=== PATIENT | female | born 1975 | race American Indian/Alaskan Native ===

== ENCOUNTER 2020-06-25 00:29 | Emergency (ER) | payer SELFPAY ==
[2020-06-25] MEDS ORDERED: HYDROmorphone 1 MG/1 ML INJ IV ONE (00:56)
[2020-06-25] MEDS ORDERED: LACTATED RINGERS 1,000 ML IV ONE ×2 (00:56→02:11)
[2020-06-25] MEDS ORDERED: ONDANSETRON 4 MG/2 ML INJ IV ONE (00:57)
--- NOTE | 2020-06-25 00:58 | Emergency Department Report ---
ED General Adult HPI - General Chief complaint: Abdominal Pain Stated complaint: weakness PUI?: Yes Time Seen by Provider: 06/25/20 00:42 Source: patient, EMS ( EMS documentation not available at time of chart dictation ), RN notes reviewed Mode of arrival: Stretcher Limitations: No Limitations - History of Present Illness Initial comments: The patient was evaluated in the emergency department for symptoms described in the history of present illness. He/she was evaluated in the context of the global COVID-19 pandemic, which necessitated consideration that the patient might be at risk for infection with the virus that causes COVID-19. Institutional protocols and algorithms that pertain to the evaluation of patients at risk for COVID-19 are in a state of rapid change based on information released by regulatory bodies including the CDC and federal and state organizations. These policies and algorithms were followed during the patient's care in the emergency department. Please note that these policies, procedures and recommendations changed on a rapid basis. During the entire history and physical examination, I had on complete personal protective equipment. Chaperoned by nurse Alka Mancuso Patient is a 45-year-old female. She is not known to myself previously. She is visiting from [place]. She reports that she has a history of appendectomy, and seizures, and reports that she currently takes phenobarbital. Patient staying in a local comfort [place] and, and is brought to the hospital by EMS. Patient complains of diffuse abdominal cramping, "teeth chattering", nausea, malaise. No loss of taste or smell. No headache. No neck pain. No chest pain. No shortness of breath. Unsure if she is having diarrhea. No urinary symptoms. She states she is concerned that she might have a seizure, however, s he has not had a seizure. She reports a negative Covid test approximately 2 weeks ago. -: Gradual, hour(s) Location: abdomen Radiation: non-radiation Quality: aching Consistency: constant Improves with: none Worsens with: other (Palpation) - Related Data Previous Rx's Medication Instructions Recorded Last Taken Type Acetaminophen [Non-Aspirin Extra 500 mg PO Q6HR PRN #30 tablet 06/25/20 Unknown Rx Strength] Amlodipine Besylate [Norvasc] 5 mg PO QDAY #30 tablet 06/25/20 Unknown Rx Ondansetron [Zofran Odt] 4 mg PO Q8HR PRN #20 tab.rapdis 06/25/20 Unknown Rx Allergies Allergy/AdvReac Type Severity Reaction Status Date / Time Penicillins Allergy Unknown Verified 06/25/20 00:39 ED Review of Systems ROS: Stated complaint: POSSIBLE SEIZURE Other details as noted in HPI Constitutional: fever, malaise, weakness Eyes: denies: eye discharge ENT: congestion Respiratory: denies: cough Cardiovascular: denies: chest pain Gastrointestinal: abdominal pain, nausea. denies: vomiting Genitourinary: denies: dysuria Musculoskeletal: myalgia Neurological: weakness. denies: headache Psychiatric: anxiety ED Past Medical Hx - Past Medical History Previous Medical History?: Yes Hx Seizures: Yes - Surgical History Past Surgical History?: Yes Hx Appendectomy: Yes - Social History Smoking Status: Current Every Day Smoker Substance Use Type: None - Medications Home Medications: Home Medications Medication Instructions Recorded Confirmed Last Taken Type Acetaminophen [Non-Aspirin Extra 500 mg PO Q6HR PRN #30 tablet 06/25/20 Unknown Rx Strength] Amlodipine Besylate [Norvasc] 5 mg PO QDAY #30 tablet 06/25/20 Unknown Rx Ondansetron [Zofran Odt] 4 mg PO Q8HR PRN #20 tab.rapdis 06/25/20 Unknown Rx ED Physical Exam - General Limitations: No Limitations General appearance: alert, anxious, in distress, obese - Head Head exam: Present: atraumatic, normocephalic - Eye Eye exam: Present: normal appearance, EOMI. Absent: nystagmus - ENT ENT exam: Present: normal exam, normal orophraynx, mucous membranes moist, normal external ear exam - Neck Neck exam: Present: normal inspection, full ROM. Absent: tenderness, meningismus - Respiratory Respiratory exam: Present: normal lung sounds bilaterally. Absent: respiratory distress, wheezes, rales, rhonchi, stridor, decreased breath sounds - Cardiovascular Cardiovascular Exam: Present: regular rate, normal rhythm, normal heart sounds. Absent: bradycardia, tachycardia, irregular rhythm, systolic murmur, diastolic murmur, rubs, gallop - GI/Abdominal GI/Abdominal exam: Present: soft, tenderness, other (Mild diffuse abdominal tenderness). Absent: distended, guarding, rebound, rigid, pulsatile mass - Extremities Exam Extremities exam: Present: normal inspection, full ROM, other (2+ pulses noted in the bilateral upper and lower extremities. There is no palpable cord. negative Homans sign. Muscular compartments are soft. The pelvis is stable.). Absent: pedal edema, calf tenderness - Back Exam Back exam: Present: normal inspection, full ROM. Absent: tenderness, CVA tenderness (R), CVA tenderness (L), paraspinal tenderness, vertebral tenderness - Neurological Exam Neurological exam: Present: alert, other (No facial droop. Tongue midline. Extraocular movements intact bilaterally. Facial sensation intact to light touch in V1, V2, V3 distribution bilaterally. 5 and a 5 strength in 4 extremities. Sensation intact to light touch in 4 extremities.). Absent: motor sensory deficit - Psychiatric Psychiatric exam: Present: anxious - Skin Skin exam: Present: warm, dry, intact, normal color. Absent: rash ED Course Vital Signs 06/25/20 06/25/20 06/25/20 00:45 01:22 01:31 Temperature 99.1 F Pulse Rate 84 Respiratory 20 Rate Blood Pressure 176/104 [Right] O2 Sat by Pulse Oximetry 06/25/20 06/25/20 03:37 04:07 Temperature 99.7 F H Pulse Rate 88 Respiratory 18 Rate Blood Pressure 183/103 [Right] O2 Sat by Pulse 97 Oximetry - Reevaluation(s) Reevaluation #1: 06/25/20 01:19 Differential diagnosis, including but not limited to: COVID-19, pneumonia, colitis, diverticulitis, obstruction, perforation, urinary tract infection Assessment and plan: 45-year-old female, with low-grade temperature, but otherwise reassuring vital signs, somewhat anxious, but clinically sober with a GCS of 15, with a primary complaint of abdominal pain, chills, feeling like she might have a seizure but has not had a seizure. Place patient on isolation. Obtain appropriate laboratory studies, x-ray of the chest, EKG urinalysis. Treat patient's symptoms. Obtain CT scan of the abdomen pelvis. Initiate seizure precautions. Reassess after initial data points. Currently, patient resting comfortably in her stretcher, was initially quite anxious, but now, does not appear to be in any acute distress. Reevaluation #2: 06/25/20 04:08 CT scan of the abdomen pelvis negative for acute disease. Patient not vomiting, intermittent dry heaving. Additional medication ordered. Urinalysis pending. 06/25/20 04:36 Urinalysis not consistent with urinary tract infection, patient menstruating. No seizures for 4 hours. Retching has resolved, after diphenhydramine/Benadryl. Suitable for trial of outpatient management. 06/25/20 04:39 Hypertension reviewed and appreciated. Please reference the [employer] clinical policy on asymptomatic hypertension which is not acutely decompensated. Outpatient management ED Medical Decision Making - Lab Data Result diagrams: 06/25/20 01:15 06/25/20 01:15 Lab Results 06/25/20 06/25/20 06/25/20 Range/Units 01:15 01:15 01:28 WBC 6.1 (4.5-11.0) K/mm3 RBC 5.24 H (3.65-5.03) M/mm3 Hgb 13.4 (10.1-14.3) gm/dl Hct 40.9 (30.3-42.9) % MCV 78 L (79-97) fl MCH 26 L (28-32) pg MCHC 33 (30-34) % RDW 19.4 H (13.2-15.2) % Plt Count 285 (140-440) K/mm3 Lymph % (Auto) 19.6 (13.4-35.0) % [place] % (Auto) 8.5 H (0.0-7.3) % Eos % (Auto) 0.6 (0.0-4.3) % Baso % (Auto) 0.9 (0.0-1.8) % Lymph # (Auto) 1.2 (1.2-5.4) K/mm3 [place] # (Auto) 0.5 (0.0-0.8) K/mm3 Eos # (Auto) 0.0 (0.0-0.4) K/mm3 Baso # (Auto) 0.1 (0.0-0.1) K/mm3 Seg Neutrophils % 70.4 H (40.0-70.0) % Seg Neutrophils # 4.3 (1.8-7.7) K/mm3 PT 12.8 (12.2-14.9) Sec. INR 0.98 (0.87-1.13) Estimated GFR > 60 ml/min BUN/Creatinine Ratio 12 % Albumin/Globulin Ratio 1.1 % Lab Results 06/25/20 06/25/20 06/25/20 Range/Units 01:15 01:15 01:28 WBC 6.1 (4.5-11.0) K/mm3 RBC 5.24 H (3.65-5.03) M/mm3 Hgb 13.4 (10.1-14.3) gm/dl Hct 40.9 (30.3-42.9) % MCV 78 L (79-97) fl MCH 26 L (28-32) pg MCHC 33 (30-34) % RDW 19.4 H (13.2-15.2) % Plt Count 285 (140-440) K/mm3 Lymph % (Auto) 19.6 (13.4-35.0) % [place] % (Auto) 8.5 H (0.0-7.3) % Eos % (Auto) 0.6 (0.0-4.3) % Baso % (Auto) 0.9 (0.0-1.8) % Lymph # (Auto) 1.2 (1.2-5.4) K/mm3 [place] # (Auto) 0.5 (0.0-0.8) K/mm3 Eos # (Auto) 0.0 (0.0-0.4) K/mm3 Baso # (Auto) 0.1 (0.0-0.1) K/mm3 Seg Neutrophils % 70.4 H (40.0-70.0) % Seg Neutrophils # 4.3 (1.8-7.7) K/mm3 PT 12.8 (12.2-14.9) Sec. INR 0.98 (0.87-1.13) Estimated GFR > 60 ml/min BUN/Creatinine Ratio 12 % Albumin/Globulin Ratio 1.1 % - EKG Data -: EKG Interpreted by Ga EKG shows normal: sinus rhythm Rate: normal - EKG Data When compared to previous EKG there are: previous EKG unavailable 06/25/20 02:02 No prior EKGs available for comparison. Sinus rhythm, 71 bpm. Normal axis, QTC prolonged, poor R wave progression, atrial premature complex. Motion artifact. Abnormal EKG. Not a STEMI. - Radiology Data Radiology results: report reviewed, image reviewed Chest x-ray negative for acute pathology. Critical care attestation.: If time is entered above; I have spent that time in minutes in the direct care of this critically ill patient, excluding procedure time. ED Disposition Clinical Impression: Suspected 2019 novel coronavirus infection, History of seizure, Elevated blood pressure reading, Acute abdominal pain Disposition: DC-01 TO HOME OR SELFCARE Is pt being admited?: No Does the pt Need Aspirin: No Condition: Good Instructions: Abdominal Pain (ED), Hypertension, Adult, Abdominal Pain, Adult, COVID-19 Additional Instructions: As we discussed, the patient most likely has novel coronavirus/COVID. the symptoms of COVID will typically persist 10 to 14 days. There is no cure at this time for COVID. Please make certain to self isolate and self quarantine, follow-up with an outpatient primary care doctor within the next 3 to 5 days, wash hands with soap and water frequently, thoroughly and often, patient may take the prescribed medications as needed and directed. Advance diet and drink plenty of fluids as tolerated. Avoid interactions with the very elderly, very young, and those with chronic medical conditions. Return to the emergency room right away with new pain, worsening pain, migration of pain, projectile vomiting, change in mental status, confusion, inability to tolerate liquid feeds, new, worsened or different symptoms not present on the initial emergency room evaluation. Patient was found to have elevated blood pressure while in the emergency room today. Please take the blood pressure medication as directed, and follow-up with your primary care doctor for hypertension and elevated blood pressure within the next month. Long-term complications of hypertension include stroke, heart attack, disability paralysis, loss of quality of life. Recommend exercise and physical activity as tolerated, avoidance of alcohol, tobacco and smoke products, and consumption of fiber, vegetables, lean protein, and avoidance of heavy and spicy foods. If patient has had a seizure within the past 6 months, Recommend that patient not drive or operate motor vehicles for the next 6 months, or until cleared to do so by her primary care doctor or neurologist. Recommend follow-up with your primary care doctor or neurologist within the next month for history of seizures do not take Metformin medication for the next 2 days, if patient takes this medication. Referrals: LEONA REY MD [Referring] - as needed (Neurology for seizures) MIA GOLDMAN MD [Staff Physician] - 7-10 days (Primary care) [facility] [Provider Group] - 7-10 days (Primary care)
--- NOTE | 2020-06-25 01:25 | XRay Report ---
CHEST 1 VIEW 1:17 AM INDICATION / CLINICAL INFORMATION: Acute febrile illness. Abdominal pain with nausea and vomiting. Chills. COMPARISON: None available. FINDINGS: SUPPORT DEVICES: None. HEART / MEDIASTINUM: The heart size and pulmonary vasculature are normal. LUNGS / PLEURA: No significant pulmonary or pleural abnormality. No pneumothorax. ADDITIONAL FINDINGS: The visualized upper abdomen is unremarkable. IMPRESSION: No acute findings. There is no evidence of pneumonia. Signer Name: Dinesh Zhao MD Signed: 06/25/2020 1:20 AM Workstation Name: [id number]
[2020-06-25] MEDS ORDERED: METOCLOPRAMIDE 10 MG/2 ML INJ IV ONE (01:30)
[2020-06-25 01:40] LABS: Basophils # (Auto) 0.1 K/mm3 (0.0-0.1); Basophils % (Auto) 0.9 % (0.0-1.8); Eosinophils % (Auto) 0.6 % (0.0-4.3); Hematocrit 40.9 % (30.3-42.9); Hemoglobin 13.4 gm/dl (10.1-14.3); Lymphocytes # (Auto) 1.2 K/mm3 (1.2-5.4); Lymphocytes % (Auto) 19.6 % (13.4-35.0); Mean Corpuscular HGB Conc 33 % (30-34); Mean Corpuscular Volume 78 fl (79-97); Monocytes # (Auto) 0.5 K/mm3 (0.0-0.8); Monocytes % (Auto) 8.5 % (0.0-7.3); Platelet Count 285 K/mm3 (140-440); Red Blood Count 5.24 M/mm3 (3.65-5.03); Red Cell Distribution Width 19.4 % (13.2-15.2)
[2020-06-25 01:52] LABS: INR 0.98 (0.87-1.13)
[2020-06-25 01:59] LABS: Alanine Aminotransferase 19 units/L (7-56); Albumin 4.8 g/dL (3.9-5); BUN/Creatinine Ratio 12; Blood Urea Nitrogen 11 mg/dL (7-17); Calcium 10.5 mg/dL (8.4-10.2); Hemolysis Index 29
--- NOTE | 2020-06-25 02:58 | Cat Scan Report ---
CT OF THE ABDOMEN AND PELVIS WITH INTRAVENOUS CONTRAST INDICATION / CLINICAL INFORMATION: Acute abdominal pain. TECHNIQUE: The patient received 100 cc Omnipaque [address] scans at this location are performed using CT dose reduction for ALARA by means of automated exposure control. COMPARISON: None available. FINDINGS: ABDOMEN: The liver, spleen, gallbladder, bile ducts, pancreas, adrenal glands and kidneys are normal in appearance. There is gas scattered throughout the colon without evidence of obstruction, bowel wal l thickening or free air. No adenopathy is identified. The lung bases are clear. PELVIS: The appendix has probably been removed. There is no evidence of diverticulitis. The uterus an d adnexal regions are normal. The distal ureters and urinary bladder are unremarkable. No abnormal ma ss or fluid collection is seen. I do not identify a hernia. There is mild lower lumbar spondylosis. IMPRESSION: No acute abnormality is identified. Signer Name: Dinesh Zhao MD Signed: 06/25/2020 2:54 AM Workstation Name: [id number]
[2020-06-25] MEDS ORDERED: SUCRALFATE 1 GM/10 ML ORAL LIQD PO ONE (03:14)
[2020-06-25] MEDS ORDERED: diphenhydrAMINE 50 MG/ML VIAL IV ONE (04:07)
[2020-06-25 04:08] VITALS: BP 183/103
[2020-06-25 04:25] LABS: Bacteria,Urine 1+ /HPF (Negative); Bilirubin,Urine NEG (Negative); Blood,Urine LG (Negative); Color,Urine Red (Yellow); Urobilinogen,Urine < 2.0 mg/dL (<2.0)
[2020-06-25 04:26] LABS: RBC,Urine > 182.0 /HPF (0.0-6.0)
== END 2020-06-25 05:30 | disposition home or self-care (01) ==
LOC: ED 00:29
DX: R03.0 Elevated blood-pressure reading, without diagnosis of hypertension (principal); R10.9 Unspecified abdominal pain; F17.200 Nicotine dependence, unspecified, uncomplicated; Z79.899 Other long term (current) drug therapy; Z90.49 Acquired absence of other specified parts of digestive tract; Z88.0 Allergy status to penicillin; Z20.828 Contact with and (suspected) exposure to other viral communicable diseases; Z87.898 Personal history of other specified conditions
CPT/HCPCS: 36415; 71045; 74177; 80053; 81001; 82550; 83690; 83735; 85025; 85610; 93005; 96361; 96374; 96375; 99285; J1170; J1200; J2405; J2765; J7120; Q9967; 80320; G0480